=== PATIENT | male | born 1990 | race Caucasian/White ===

== ENCOUNTER 2021-09-19 10:47 | Emergency (ER) | payer SELFPAY ==
[~2021-09-19] VITALS: Ht 172.7 cm; Wt 81.8 kg
[2021-09-19 13:43] LABS: BASO # 0.1 10^3/uL (0.0-0.2); BASO % 1.3 % (0.0-1.0); EOS # 0.3 10^3/uL (0.0-0.5); EOS % 4.3 % (0.0-3.0); HEMATOCRIT 39.9 % (42.0-52.0); HEMOGLOBIN 13.5 g/dl (13.5-17.5); LYMPH # 2.5 10^3/uL (1.5-5.0); LYMPH % 36.6 % (24.0-44.0); MEAN CORPUSCULAR HEMOGLOBIN 30.5 pg (27.0-33.0); MEAN CORPUSCULAR HGB CONC 33.8 g/dl (32.0-36.5); MEAN CORPUSCULAR VOLUME 90.1 fl (80.0-96.0); MONO # 0.6 10^3/uL (0.0-0.8); MONO % 9.1 % (2.0-8.0); NEUTROPHILS # 3.3 10^3/uL (1.5-8.5); NEUTROPHILS % 48.4 % (36.0-66.0); PLATELET COUNT, AUTOMATED 202 10^3/uL (150-450); RED BLOOD COUNT 4.43 10^6/uL (4.30-6.10); WHITE BLOOD COUNT 6.8 10^3/uL (4.0-10.0)
[2021-09-19 14:09] LABS: BLOOD UREA NITROGEN 13 MG/DL (7-18); CALCIUM LEVEL 9.4 MG/DL (8.5-10.1); CARBON DIOXIDE LEVEL 27 MEQ/L (21-32); CHLORIDE LEVEL 105 MEQ/L (98-107); CREATININE FOR GFR 0.82 MG/DL (0.70-1.30); GLOMERULAR FILTRATION RATE > 60.0 (>60); GLUCOSE, FASTING 89 MG/DL (70-100); POTASSIUM SERUM 4.5 MEQ/L (3.5-5.1); SODIUM LEVEL 138 MEQ/L (136-145)
[2021-09-19] MEDS ORDERED: NS 1,000 ML IV ONE (14:25)
[2021-09-19] MEDS ORDERED: ISOVUE-370 76% 100ML VIAL As Ordered ONE (14:26)
[2021-09-19 15:43] VITALS: BP 122/75
[2021-09-19] MEDS ORDERED: NAPR-837 PO (15:43)
== END 2021-09-19 16:12 | disposition home or self-care (01) ==
LOC: M ED 10:47
DX: M94.0 Chondrocostal junction syndrome [Tietze] (principal); F17.200 Nicotine dependence, unspecified, uncomplicated; F12.10 Cannabis abuse, uncomplicated
CPT/HCPCS: 71045; 71275; 80048; 84484; 85025; 85379; 93005; 96360; 96361; 99284; Q9967

== ENCOUNTER 2021-12-10 08:13 | Emergency (ER) | payer SELFPAY ==
[~2021-12-10] VITALS: Ht 172.7 cm; Wt 80.5 kg
[~2021-12-10 08:13] MED LIST: NAPR-837 PO
[2021-12-10 09:43] LABS: BASO # 0.1 10^3/uL (0.0-0.2); EOS # 0.3 10^3/uL (0.0-0.5); EOS % 4.9 % (0.0-3.0); HEMATOCRIT 38.5 % (42.0-52.0); HEMOGLOBIN 12.9 g/dl (13.5-17.5); LYMPH # 1.7 10^3/uL (1.5-5.0); LYMPH % 24.3 % (24.0-44.0); MEAN CORPUSCULAR HEMOGLOBIN 30.9 pg (27.0-33.0); MEAN CORPUSCULAR HGB CONC 33.5 g/dl (32.0-36.5); MEAN CORPUSCULAR VOLUME 92.3 fl (80.0-96.0); MONO # 0.7 10^3/uL (0.0-0.8); MONO % 10.6 % (2.0-8.0); NEUTROPHILS # 4.1 10^3/uL (1.5-8.5); NEUTROPHILS % 58.9 % (36.0-66.0); PLATELET COUNT, AUTOMATED 181 10^3/uL (150-450); RED BLOOD COUNT 4.17 10^6/uL (4.30-6.10); WHITE BLOOD COUNT 6.9 10^3/uL (4.0-10.0)
[2021-12-10 10:07] LABS: BLOOD UREA NITROGEN 15 MG/DL (7-18); CALCIUM LEVEL 9.1 MG/DL (8.5-10.1); CARBON DIOXIDE LEVEL 27 MEQ/L (21-32); CHLORIDE LEVEL 111 MEQ/L (98-107); CREATININE FOR GFR 0.86 MG/DL (0.70-1.30); GLOMERULAR FILTRATION RATE > 60.0 (>60); GLUCOSE, FASTING 97 MG/DL (70-100); POTASSIUM SERUM 4.7 MEQ/L (3.5-5.1); SODIUM LEVEL 141 MEQ/L (136-145)
[2021-12-10 10:10] LABS: CK-MB VALUE MASS < 1.0 NG/ML (<3.6); CPK CREATINE PHOSPHOKINASE 69 U/L (39-308); MB/CK RELATIVE INDEX 1.45 (< OR =4)
[2021-12-10] MEDS ORDERED: GI COCKTAIL 50ML BTL(HYOSCYAMINE/MAALOX/LIDOCAINE VISCOUS)(1:3:1) PO ONE (11:30)
[2021-12-10] MEDS ORDERED: OMEP40CA4 PO (11:37)
[2021-12-10 12:11] VITALS: BP 141/82
== END 2021-12-10 12:49 | disposition home or self-care (01) ==
LOC: M ED 08:13
DX: R07.9 Chest pain, unspecified (principal); R12 Heartburn; R94.31 Abnormal electrocardiogram [ECG] [EKG]; R51.9 Headache, unspecified; R05.9 Cough, unspecified; F17.200 Nicotine dependence, unspecified, uncomplicated; Z79.899 Other long term (current) drug therapy

== ENCOUNTER 2022-05-28 13:10 | Emergency (ER) | payer SELFPAY ==
[~2022-05-28] VITALS: Ht 172.7 cm; Wt 81.8 kg
[~2022-05-28 13:10] MED LIST changes: +OMEP40CA4 PO
[2022-05-28] MEDS ORDERED: IBUP200C28 PO (14:09)
[2022-05-28 15:00] VITALS: BP 147/89
== END 2022-05-28 15:02 | disposition home or self-care (01) ==
LOC: M ED 13:10
DX: S93.401A Sprain of unspecified ligament of right ankle, initial encounter (principal); Y30.XXXA Falling, jumping or pushed from a high place, undetermined intent, initial encounter; Y99.0 Civilian activity done for income or pay

== ENCOUNTER 2023-03-09 20:23 | Emergency (ER) | payer SELFPAY ==
[~2023-03-09] VITALS: Ht 175.3 cm; Wt 74.6 kg
[~2023-03-09 20:23] MED LIST changes: +IBUP200C28 PO
[2023-03-09] MEDS ORDERED: AMOX875T2 PO (20:53)
[2023-03-09] MEDS ORDERED: KETO10TAB PO (20:53)
[2023-03-09] MEDS ORDERED: KETOROLAC 60MG 2ML VIAL IM ONE (20:55)
[2023-03-09] MEDS ORDERED: AUGMENTIN 875 MG TAB PO ONE (20:55)
[2023-03-09 21:38] VITALS: BP 135/88; TEMP 97.2; O2SAT 98
== END 2023-03-09 21:40 | disposition home or self-care (01) ==
LOC: M ED 20:23
DX: K04.7 Periapical abscess without sinus (principal); L03.211 Cellulitis of face; F17.210 Nicotine dependence, cigarettes, uncomplicated
CPT/HCPCS: 96372; 99283; J1885

== ENCOUNTER 2023-04-17 08:10 | Emergency (ER) | payer SELFPAY ==
[~2023-04-17] VITALS: Ht 175.3 cm; Wt 75.0 kg
[2023-04-17 08:10] VITALS: BP 137/90; TEMP 97.1; O2SAT 97
[~2023-04-17 08:10] MED LIST changes: +AMOX875T2 PO; +KETO10TAB PO
[2023-04-17 09:32] LABS: BASO # 0.1 10^3/uL (0.0-0.2); BASO % 0.8 % (0.0-1.0); EOS # 0.2 10^3/uL (0.0-0.5); EOS % 1.4 % (0.0-3.0); HEMATOCRIT 44.5 % (42.0-52.0); HEMOGLOBIN 15.2 g/dl (13.5-17.5); LYMPH # 1.3 10^3/uL (1.5-5.0); LYMPH % 10.3 % (24.0-44.0); MEAN CORPUSCULAR HEMOGLOBIN 31.3 pg (27.0-33.0); MEAN CORPUSCULAR HGB CONC 34.2 g/dl (32.0-36.5); MEAN CORPUSCULAR VOLUME 91.6 fl (80.0-96.0); MONO # 0.7 10^3/uL (0.0-0.8); MONO % 5.5 % (2.0-8.0); NEUTROPHILS # 10.6 10^3/uL (1.5-8.5); NEUTROPHILS % 81.6 % (36.0-66.0); PLATELET COUNT, AUTOMATED 233 10^3/uL (150-450); RED BLOOD COUNT 4.86 10^6/uL (4.30-6.10); WHITE BLOOD COUNT 12.9 10^3/uL (4.0-10.0)
[2023-04-17 10:04] LABS: LIPASE 27 U/L (12-53)
[2023-04-17 10:07] LABS: ALBUMIN 4.9 G/DL (3.2-5.2); ALKALINE PHOSPHATASE 87 U/L (46-116); ALT/SGPT 31 U/L (7.0-40); AST/SGOT 17 U/L (<34); BILIRUBIN,DIRECT 0.2 MG/DL (<0.4); BILIRUBIN,TOTAL 0.5 MG/DL (0.3-1.2); BLOOD UREA NITROGEN 16 MG/DL (9-23); CALCIUM LEVEL 10.2 MG/DL (8.5-10.1); CARBON DIOXIDE LEVEL 27 MMOL/L (20-31); CHLORIDE LEVEL 105 MMOL/L (98-107); CREATININE FOR GFR 0.81 MG/DL (0.70-1.30); GLOMERULAR FILTRATION RATE > 60.0 (>60); GLUCOSE, FASTING 96 MG/DL (60-100); POTASSIUM SERUM 4.7 MMOL/L (3.5-5.1); SODIUM LEVEL 139 MMOL/L (136-145); TOTAL PROTEIN 8.3 G/DL (5.7-8.2)
== END 2023-04-17 12:17 | disposition left against medical advice (07) ==
LOC: M ED 08:10
DX: R10.9 Unspecified abdominal pain (principal); Z53.21 Procedure and treatment not carried out due to patient leaving prior to being seen by health care provider